=== PATIENT | male | born 1960 | race Caucasian/White ===

== ENCOUNTER 2019-09-22 14:59 | Emergency (ER) | payer OTHER ==
[~2019-09-22] VITALS: Ht 188 cm; Wt 87.3 kg
[2019-09-22] MEDS ORDERED: ketorolac trometh. 30mg/ml inj. IV ONE (15:25)
[2019-09-22] MEDS ORDERED: ondansetron/PF 4mg/2ml inj IV ONE (15:25)
[2019-09-22] MEDS ORDERED: morphine 4 MG/ML inj SYRINge IV ONE ×2 (15:25→16:15)
[2019-09-22] MEDS ORDERED: diazepam 5mg tablet PO ONE (16:30)
[2019-09-22] MEDS ORDERED: HYDR-4384 PO (16:33)
[2019-09-22] MEDS ORDERED: CYCL-1 PO (17:01)
== END 2019-09-22 17:42 | disposition home or self-care (01) ==
LOC: ER 15:00
DX: S42.402A Unspecified fracture of lower end of left humerus, initial encounter for closed fracture (principal); Z98.890 Other specified postprocedural states; V00.311A Fall from snowboard, initial encounter; Y93.23 Activity, snow (alpine) (downhill) skiing, snowboarding, sledding, tobogganing and snow tubing; Y92.89 Other specified places as the place of occurrence of the external cause; Y99.9 Unspecified external cause status
CPT/HCPCS: 73030; 73060; 96374; 96375; 96376; 99283; J1885; J2270; J2405